=== PATIENT | male | born 1955 | race Caucasian/White ===

== ENCOUNTER 2017-05-27 09:26 | Day surgery (SDC) | payer OTHER ==
[2017-05-27] MEDS ORDERED: LIDOCAINE 1%/EPI 1:100000 (20 ML MULTI DOSE VIAL) ONE (09:56)
[2017-05-27] MEDS ORDERED: SODIUM BICARBONATE 8.4% 50 MEQ/50 ML VIAL ONE (09:57)
[2017-05-27 10:20] VITALS: BMI 43.7
[2017-05-27 11:37] VITALS: PULSE 68
[2017-05-27 11:58] VITALS: BP 148/65; TEMP 98.8
--- NOTE | 2017-06-01 18:56 | OP ---
DATE OF OPERATION: 05/27/2017 PREOPERATIVE DIAGNOSIS: Left carpal tunnel syndrome. POSTOPERATIVE DIAGNOSIS: Left carpal tunnel syndrome. OPERATIVE PROCEDURE: Left carpal tunnel release. ANESTHESIA: Local. COMPLICATIONS: None. ESTIMATED BLOOD LOSS: Minimal. INDICATION FOR PROCEDURE: The patient is a 61-year-old male with the above finding, indicated for operative treatment. Risks, benefits, and alternatives were discussed with the patient at length. Proper informed consent was obtained. PROCEDURE: After proper identification of the patient and the correct operative site, patient was brought to the operating room and placed supine on the operative table. All prominences were well padded. Local anesthesia was given with 1% lidocaine with epinephrine and bicarbonate. Left upper extremity was prepped and draped in usual sterile fashion. A longitudinal incision was made in the proximal aspect of the palm. Incision was taken sharply through the skin with blunt and sharp dissection through the subcutaneous tissues. Palmar fascia was divided longitudinally. Transcarpal ligament along with the distal 4 cm of the antebrachial fascia was divided longitudinally under direct visualization with loupe magnification. This provided complete release of the median nerve at the wrist. Wound was irrigated with copious amounts of normal saline, repaired with a 5-0 nylon suture. Sterile dressings were applied. Patient was reversed from sedation, brought to recovery room in stable condition. He tolerated the procedure well. ELMER MCARTHUR M.D. [id number]
== END 2017-05-27 12:30 | disposition home or self-care (01) ==
LOC: FASU 09:26
PROVIDERS: ATTEND Orthopaedic Surgery Hand Surgery
PROC: 01N50ZZ Release Median Nerve, Open Approach (ICD-10-PCS; principal; 2017-05-27 11:12)
DX: G56.02 Carpal tunnel syndrome, left upper limb (principal); I10 Essential (primary) hypertension; E11.9 Type 2 diabetes mellitus without complications; G47.30 Sleep apnea, unspecified; J45.909 Unspecified asthma, uncomplicated

== ENCOUNTER 2017-06-30 13:10 | Emergency (ER) | payer OTHER ==
[2017-06-30 13:21] VITALS: BMI 38.3
--- NOTE | 2017-06-30 14:11 | PDOC ---
History of Present Illness - General Chief Complaint: Blood Sugar Problem Stated Complaint: BLOOD PRESSURE Time Seen by Provider: 06/30/17 13:36 History Source: Patient Exam Limitations: No Limitations - History of Present Illness Initial Comments: This is a 61 YOM with h/o IDDM (on 60 units qAM and 40 units qPM), HTN, HLD, and recent hydrocele removal with slowly healing scrotal incision for which he follow with wound care. He presents BIBA for syncope in a parking lot shortly after taking his normal 60 units morning insulin. He had only a Glycerna this morning at did not eat his normal breakfast. EMS measured his CBG to be mid-30s on their arrival on scene. It is unclear how long the patient was unconscious as The patient himself cannot recall the incident but does recall awakening in the care of EMS. He suffered a small abrasion on the left forearm but denies head pain, neck pain, chest pain, SOB, abdominal pain, cough, runny nose, sore throat, nausea, vomiting, fever, chills, or other symptoms currently, prior to the syncopal episode, or any time recently. Past History - Past Medical History Allergies/Adverse Reactions: Allergies Allergy/AdvReac Type Severity Reaction Status Date / Time No Known Allergies Allergy Verified 06/30/17 13:17 Home Medications: Ambulatory Orders Atorvastatin Ca [Lipitor] 40 mg PO HS 12/30/11 Gabapentin [Neurontin -] 100 mg PO BID 12/30/11 Multivitamin [Multi-Day Vitamins] 1 each PO DAILY 12/30/11 Aspirin [ASA -] 81 mg PO DAILY #0 tab.chew 06/09/13 Tamsulosin HCl [Flomax -] 0.4 mg PO DAILY@0830 #0 cap.er.24h 06/09/13 Metoprolol Tartrate [Lopressor -] 50 mg PO BID #0 tablet 08/17/13 Amlodipine Besylate [Norvasc -] 10 mg PO DAILY 11/21/13 Famotidine [Pepcid -] 20 mg PO BID 02/16/15 [place]-3 Fatty Acids [Fish Oil] 2,400 mg PO DAILY 02/16/15 Bupropion HCl [Wellbutrin -] 150 mg PO DAILY 06/11/15 Fluoxetine HCl [Prozac] 80 mg PO DAILY 06/11/15 Beclomethasone Dipropionate [Qvar] 80 mcg IH BID 02/08/16 Fenofibrate Nanocrystallized [Fenofibrate] 200 mg PO DAILY 02/08/16 Glucosamine/Chondr Valdez A Sod [Osteo Bi-Flex Caplet] 2 each PO DAILY 02/08/16 Insulin Lispro Protamin/Lispro [Humalog Mix 50-50 Kwikpen] 40 unit SQ HS Insulin Lispro Protamin/Lispro [Humalog Mix 50-50 Vial] 60 unit SQ AM 02/08/16 Liraglutide [Victoza -] 1.2 mg SQ DAILY@0700 02/08/16 Allopurinol [Zyloprim -] 100 mg PO DAILY 05/19/17 Empagliflozin [Jardiance] 25 mg PO DAILY 05/19/17 Lisinopril/Hydrochlorothiazide [Lisinopril-Hctz 10-12.5 mg Tab] 1 tab PO DAILY 05/19/17 Anemia: Yes (NO MED) Asthma: No Cancer: No Cardiac Disorders: Yes (6 stent last one in 2012) CVA: No COPD: No CHF: Yes Dementia: No Diabetes: Yes GI Disorders: Yes (DIVERTICULOSIS) Disorders: No HTN: Yes Hypercholesterolemia: Yes Liver Disease: No Seizures: No Thyroid Disease: No - Surgical History Abdominal Surgery: No Appendectomy: No Cardiac Surgery: Yes (6 cardiac stents) Cholecystectomy: No Lung Surgery: No Neurologic Surgery: No Orthopedic Surgery: No - Immunization History Immunization Up to Date: Yes - Suicide/Smoking/Psychosocial Hx Smoking Status: No Smoking History: Never smoked Have you smoked in the past 12 months: No Number of Cigarettes Smoked Daily: 0 Information on smoking cessation initiated: No Hx Alcohol Use: No Drug/Substance Use Hx: No Substance Use Type: None Hx Substance Use Treatment: No Review of Systems - Review of Systems Able to Perform ROS?: Yes Constitutional: No: Chills, Fever, Unexplained wgt Loss HEENTM: No: Nose Congestion, Throat Pain Respiratory: No: Cough, Shortness of Breath Cardiac (ROS): Yes: Syncope. No: Chest Pain, Palpitations ABD/GI: No: Constipated, Diarrhea, Nausea, Vomiting : No: Burning, Dysuria Musculoskeletal: No: Back Pain, Neck Pain Integumentary: No: Bruising, Rash Neurological: No: Headache, Numbness, Tingling, Weakness, Dizziness Endocrine: No: Unexplained Weight Gain, Unexplained Weight Loss *Physical Exam - Vital Signs Last Vital Signs Temp Pulse Resp BP Pulse Ox 60 20 141/72 98 06/30/17 13:18 06/30/17 13:18 06/30/17 13:18 06/30/17 13:18 - Physical Exam General Appearance: Yes: Nourished, Appropriately Dressed, Obese, Other (very pleasant adult gentleman who is conversive and answering questions appropriately ). No: Apparent Distress HEENT: positive: EOMI, LEYLA, Normal Voice, Hearing Grossly Normal. negative: Scleral Icterus (R), Scleral Icterus (L), Nasal Congestion Neck: positive: Trachea midline, Supple. negative: Tender, Rigid Respiratory/Chest: positive: Lungs Clear, Normal Breath Sounds. negative: Respiratory Distress, Crackles, Rhonchi, Stridor, Wheezing Cardiovascular: positive: Regular Rhythm, Regular Rate. negative: Murmur Gastrointestinal/Abdominal: positive: Normal Bowel Sounds, Soft, Other (obese). negative: Tender, Organomegaly, Pulsatile Mass, Guarding Musculoskeletal: positive: Normal Inspection. negative: Decreased Range of Motion, Vertebral Tenderness Extremity: positive: Normal Capillary Refill, Normal Inspection, Normal Range of Motion. negative: Tender, Cyanosis Integumentary: positive: Normal Color, Dry, Warm. negative: Erythema, Rash, Bruising Neurologic: positive: manager inspection II-XII NML intact, Fully Oriented, Alert, Normal Mood/ Affect, Normal Response, Motor Strength 5/5 Heart Score/ECG Review - History History: Slightly suspicious - Electrocardiogram EKG: Non specific repolarization disturbance - Age Age: 45-65 - Risk Factors Risk Factors Heart Score: Yes Hx Hypercholesterolemia, Yes Hx Hypertension, Yes Hx Diabetes, Yes Hx Obesity Based on the list above the patient has:: >/=3 risk factors or Hx atherosclerotic disease ED Treatment Course - LABORATORY CBC & Chemistry Diagram: 06/30/17 14:07 06/30/17 14:07 - RADIOLOGY Radiology Studies Ordered: Category Date Time Status CHEST X-RAY PORTABLE* [RAD] Stat Radiology 06/30/17 14:01 Ordered Medical Decision Making - Medical Decision Making 61 YOM with IDDM HTN HLD who had syncopal episode s/p taking his morning 60 units humalog. Did not eat as much after dosing with insulin this morning. On exam initial rectal temp is 93.5, otherwise VS wnl. Patient initially just slightly confused (states he feels so), otherwise normal exam. DDX IBNLT sepsis, exposure, metabolic derangement, etc. Ordered is CBCD CMP Mg Cardiac panel Lactate BCx, UA Cx EKG CXR Abdifatah hugger. 06/30/17 17:03 Removed Abdifatah Hugger to see if patient can maintain body temperature. 06/30/17 18:44 Repeat oral temperature is 97.9. Repeat fingerstick glucose in the 150s. Patient feels comfortable with plan to discharge home. Return precautions are discussed. *DC/Admit/Observation/Transfer Diagnosis at time of Disposition: Hypoglycemia Syncope Qualifiers: Syncope type: unspecified Qualified Code(s): R55 - Syncope and collapse Hypothermia Qualifiers: Encounter type: initial encounter Qualified Code(s): T68.XXXA - Hypothermia, initial encounter - Discharge Dispostion Disposition: HOME Condition at time of disposition: Stable Admit: No - Referrals - Patient Instructions Printed Discharge Instructions: DI for Hyperglycemia -- Adult Additional Instructions: You were seen in the ER for high blood sugar, fainting, and low body temperature. You were given sugar solution by the paramedics and we gave you oral glucose here in the ER. We put a heated air blanket on you which helped almost immediately with your low body temperature. We did a full workup to make sure you did not have an infection or other concerning illness that could have contributed to your fainting today, and we did not find any abnormalities. Please follow up with your regular doctor in 1-3 days, or return to the ER for any new or worsening symptoms like repeated fainting, low blood glucose, or other symptoms. - Post Discharge Activity
[2017-06-30 14:45] LABS: BASO % 0.5 % (0-2.0); EOS % 0.7 % (0-4.5); HEMATOCRIT 44.9 % (35.4-49); HEMOGLOBIN 14.7 GM/dL (11.7-16.9); LYMPH % 14.3 % (8-40); MCH 29.1 pg (25.7-33.7); MCHC 32.7 g/dl (32.0-35.9); MEAN CELL VOLUME 89.2 fl (80-96); MEAN PLT VOLUME 8.6 fl (7.5-11.1); MONO % 7.2 % (3.8-10.2); NEUT % 77.3 % (42.8-82.8); PLATELET COUNT 243 K/MM3 (134-434); RBC 5.03 M/mm3 (4.00-5.60); RDW 14.6 % (11.9-15.9); WHITE BLOOD COUNT 9.1 K/mm3 (4.0-10.0)
[2017-06-30 14:58] LABS: ALBUMIN 3.7 g/dl (3.4-5.0); ALK PHOS 45 U/L (45-117); ANION GAP 7 (8-16); BILIRUBIN,TOTAL 0.5 mg/dL (0.2-1.0); BLOOD UREA NITROGEN 21 mg/dL (7-18); CALCIUM 8.8 mg/dL (8.5-10.1); CHLORIDE 104 mmol/L (98-107); CO2 26 mmol/L (21-32); CREATININE 1.3 mg/dL (0.7-1.3); SGPT/ALT 63 U/L (12-78); SODIUM 137 mmol/L (136-145); TOT PROT 7.8 g/dl (6.4-8.2)
[2017-06-30 15:02] LABS: POTASSIUM 4.2 mmol/L (3.5-5.1)
[2017-06-30 15:03] LABS: GLUCOSE,RANDOM 41 mg/dL (74-106); SGOT/AST 88 U/L (15-37)
[2017-06-30 15:05] LABS: INR 1.13 (0.82-1.09); PROTHROMBIN TIME (PATIENT) 12.8 SEC (9.98-11.88)
[2017-06-30 15:59] LABS: VENOUS PC02 56.9 mmHg (38-52); VENOUS PH 7.25 (7.32-7.42); VENOUS PO2 32.7 mmHg (28-48)
--- NOTE | 2017-06-30 16:14 | PDOC ---
Attending Attestation - Resident Resident Name: Brandy Iqbal - ED Attending Attestation I have performed the following: I have examined & evaluated the patient, The case was reviewed & discussed with the resident, I agree w/resident's findings & plan, Exceptions are as noted - HPI HPI: 06/30/17 16:08 "The patient is a 61 year old male with a significant PMH of IDDM (60 UNITS humalog in the AM and 40 UNITS in PM), hypertension, hyperlipidemia, and recent hydrocele removal who presents to the emergency department brought in by EMS after being found unresponsive in a parking lot. The patient states he took his usual 60u of inuslin in the morning and had a glycerna shake afterwards but did not eat anything else. He remembers being in the parking lot and having the sensation that his blood sugar was low. The next thing he remembers is waking up in the ambulance. As per EMS, blood glucose was found to be in the mid-30s when they found him. It is unclear how long the patient was unconscious. Pt's fingerstick in ER is 48. Pt denies any complaints currently other than feeling very cold. Denies any F/C prior to today. Denies taking more than his usual dose of insulin. The patient denies chest pain, shortness of breath, headache and dizziness. Denies fever, chills, nausea, vomit, diarrhea and constipation. Denies dysuria, frequency, urgency and hematuria. Allergies: NKA Past surgical history: None reported. Social history: No reported alcohol, cigarette or drug use. - Physicial Exam PE: 06/30/17 16:12 "GENERAL: Awake, alert, and fully oriented, in no acute distress HEAD: No signs of trauma EYES: PERRLA, EOMI, sclera anicteric, conjunctiva clear ENT: Auricles normal inspection, hearing grossly normal, nares patent, oropharynx clear without exudates. Moist mucosa NECK: Nontender, no stepoffs, Normal ROM, supple, no lymphadenopathy, JVD, or masses LUNGS: Breath sounds equal, clear to auscultation bilaterally. No wheezes, and no crackles HEART: Regular rate and rhythm, normal S1 and S2, no murmurs, rubs or gallops ABDOMEN: Soft, nontender, normoactive bowel sounds. No guarding, no rebound. No masses EXTREMITIES: Normal range of motion, no edema. No clubbing or cyanosis. No cords, erythema, or tenderness NEUROLOGICAL: Cranial nerves II through XII intact. 5/5 strength and sensation in all extremities, Normal speech, normal gait SKIN: Warm, Dry, normal turgor, no rashes or lesions noted. " - Medical Decision Making 06/30/17 16:12 61 M with hypoglycemia, likely 2/2 poor PO intake after taking his usual dose of insulin. Pt now mentating appropriately, alert and oriented x 3, after eating sandwich in ER. Pt also found to be hypothermic to 93 F in ED. This is likely 2/2 prolonged exposure outdoors. - Labs - Sepsis work up - Active external rewarming with piyush hugger - Glucose monitoring 06/30/17 18:48 Labs wnl. Fingerstick 98 after eating sandwich. Pt's temperature now improved after being on piyush hugger. Pt left off of piyush hugger for 1 hour, repeat temp normal. Pt continues to feel well with normal exam and vitals at this time. Clinically stable for DC.
--- NOTE | 2017-06-30 17:30 | EKG ---
Test Reason : Blood Pressure : / mmHG Vent. Rate : 059 BPM Atrial Rate : 059 BPM P-R Int : 158 ms QRS Dur : 116 ms QT Int : 478 ms P-R-T Axes : 007 024 -56 degrees QTc Int : 473 ms SINUS BRADYCARDIA WITH OCCASIONAL PREMATURE VENTRICULAR COMPLEXES NONSPECIFIC T WAVE ABNORMALITY PROLONGED QT ABNORMAL ECG WHEN COMPARED WITH ECG OF 04-APR-2016 11:57, PREMATURE VENTRICULAR COMPLEXES ARE NOW PRESENT VENT. RATE HAS DECREASED BY 30 BPM T WAVE INVERSION NO LONGER EVIDENT IN INFERIOR LEADS Confirmed by Oumar Freeman ([id number]) on 06/30/2017 5:30:19 PM Referred By: Confirmed By:Oumar Freeman
[2017-06-30 18:58] VITALS: BP 126/77; PULSE 81; TEMP 98.1
== END 2017-06-30 18:58 | disposition home or self-care (01) ==
LOC: JER 13:10
DX: E11.649 Type 2 diabetes mellitus with hypoglycemia without coma (principal); Z79.4 Long term (current) use of insulin; I25.10 Atherosclerotic heart disease of native coronary artery without angina pectoris; I11.0 Hypertensive heart disease with heart failure; Z95.5 Presence of coronary angioplasty implant and graft; E78.00 Pure hypercholesterolemia, unspecified
CPT/HCPCS: 36415; 71045-TC; 80053; 82550; 82553; 82803; 82962; 83605; 84484; 85025; 85610; 85730; 86850; 86900; 86901; 87040; 93005; 93010; 99285-25

== ENCOUNTER 2017-07-08 10:19 | Day surgery (SDC) | payer OTHER ==
[2017-07-02 10:06] VITALS: BMI 37.6
[2017-07-08] MEDS ORDERED: LIDOCAINE HCL 2% (20ML MULTI-DOSE VIAL) NR ONE (13:17)
[2017-07-08] MEDS ORDERED: BUPIVACAINE HCL/PF 2.5 MG/ML - 30 ML VIAL IJ ONE (13:17)
[2017-07-08] MEDS ORDERED: LIDOCAINE 1%/EPI 1:100000 (20 ML MULTI DOSE VIAL) ONE (13:45)
[2017-07-08] MEDS ORDERED: SODIUM BICARBONATE 8.4% 50 MEQ/50 ML VIAL ONE (13:45)
[2017-07-08 14:54] VITALS: TEMP 98.8
[2017-07-08 15:29] VITALS: BP 130/66; PULSE 70
--- NOTE | 2017-07-11 12:10 | OP ---
DATE OF OPERATION: 07/08/2017 PREOPERATIVE DIAGNOSIS: Right carpal tunnel syndrome. POSTOPERATIVE DIAGNOSIS: Right carpal tunnel syndrome. OPERATIVE PROCEDURE: Right carpal tunnel release. ANESTHESIA: Local. COMPLICATIONS: None. ESTIMATED BLOOD LOSS: Minimal. INDICATION FOR PROCEDURE: The patient is a 61-year-old male with the above finding, indicated for operative treatment. Risks, benefits, and alternatives were discussed with the patient at length. Proper informed consent was obtained. PROCEDURE: After proper identification of the patient and the correct operative site, the patient was brought to the operating room and placed supine on the operative table. Prominences were well padded. Local anesthesia was given with 2% lidocaine with epinephrine. Right upper extremity was prepped and draped in the usual sterile fashion. A longitudinal incision was made in the proximal aspect of the palm. Incision was taken sharply through the skin with blunt and sharp dissection through the subcutaneous tissues. Palmar fascia was divided longitudinally. Transcarpal ligament was divided longitudinally along with the distal 4 cm of the antebrachial fascia under direct visualization with loupe magnification. This provided complete release of the median nerve at the wrist. Wound was irrigated with saline and repaired with a 5-0 nylon suture. Sterile dressings were applied. Patient was brought to Recovery in stable condition. He tolerated the procedure well. ELMER MCARTHUR M.D. [id number]
== END 2017-07-08 15:34 | disposition home or self-care (01) ==
LOC: FASU 10:19
PROVIDERS: ATTEND Orthopaedic Surgery Hand Surgery
PROC: 01N50ZZ Release Median Nerve, Open Approach (ICD-10-PCS; principal; 2017-07-08 14:16)
DX: G56.01 Carpal tunnel syndrome, right upper limb (principal)
CPT/HCPCS: 82962; 87070

== ENCOUNTER 2018-03-10 07:24 | Day surgery (SDC) | payer OTHER ==
[2018-03-01 17:54] VITALS: BMI 38.0
[2018-03-10] MEDS ORDERED: PROPOFOL 20 ML ONE ×2 (07:27)
[2018-03-10 09:52] VITALS: BP 128/70; PULSE 57; TEMP 98
--- NOTE | 2018-03-12 15:06 | PATH ---
Surgical Pathology Report Patient Name: ESTEFANÍA GUZMÁN [facility]. Rec. #: [id number] /Age/Gender: 1955 (Age: 62) / M Account: [id number] Location: [facility] Taken: 03/10/2018 Received: 03/10/2018 Reported: 03/12/2018 Physicians: eVlasquez Fisher M.D. Specimen(s) Received A: BX CECUM B: SPLENIC FLEXURE BIOPSY Clinical History Rule out colon cancer, history of polyps Postoperative diagnosis: Polyps Final Diagnosis A. CECUM, BIOPSY: TUBULAR ADENOMA. B. COLON, SPLENIC FLEXURE, BIOPSY: ORGANIC MATERIAL/DEBRIS. NO COLONIC MUCOSA IDENTIFIED. Electronically Signed Davina Ruiz M.D. Gross Description A. Received in formalin, labeled "cecum" is a krishnamurthy, irregular portion of soft tissue measuring 0.3 cm. in greatest dimension. The specimen is submitted in toto in one cassette. B. Received in formalin labeled "splenic," is a 0.4 x 0.4 x 0.1 cm aggregate of organic debris. No definite soft tissue is identified. The formalin is filtered and the specimen is entirely submitted in one cassette. 03/11/2018 saudi03/11/2018
== END 2018-03-10 09:52 | disposition home or self-care (01) ==
LOC: FASU-ENDO 07:24
PROVIDERS: ATTEND Internal Medicine Gastroenterology
PROC: 0DBN8ZX Excision of Sigmoid Colon, Via Natural or Artificial Opening Endoscopic, Diagnostic (ICD-10-PCS; 2018-03-10)
PROC: 0DBH8ZX Excision of Cecum, Via Natural or Artificial Opening Endoscopic, Diagnostic (ICD-10-PCS; principal; 2018-03-10 08:32)
PROC: 0DBL8ZX Excision of Transverse Colon, Via Natural or Artificial Opening Endoscopic, Diagnostic (ICD-10-PCS; 2018-03-10 08:32)
DX: Z86.010 Personal history of colon polyps (principal); D12.0 Benign neoplasm of cecum; K57.30 Diverticulosis of large intestine without perforation or abscess without bleeding
CPT/HCPCS: 82962; 88305-TC

== ENCOUNTER 2019-07-19 09:04 | Emergency (ER) | payer OTHER ==
[2019-07-19 09:18] VITALS: BP 155/65; PULSE 72; TEMP 99.1; BMI 40.4
--- NOTE | 2019-07-19 09:35 | PDOC ---
History of Present Illness - General Chief Complaint: Injury Stated Complaint: ROLLED OUT OF BED INJURED LEFTARM AND FINGER Time Seen by Provider: 07/19/19 09:24 - History of Present Illness Initial Comments: 07/19/19 09:40 62 years old with past medical history of hypertension hyperlipidemia CAD stents diastolic heart failure insulin-dependent diabetes bilateral lower extremity cellulitis on aspirin presents to the emergency department with fall from bed Patient states he rolled out of bed hit his upper lip below his nose on the bed stand fell to the ground landing on his left hand complaining of mild pain to his left index finger middle finger and right forearm Denies loss of consciousness states this is happened to him before he does take melatonin and Benadryl at night to help him sleep and because of this he is often drowsy. Denies any chest pain shortness of breath nausea vomiting or diarrhea Past History - Past Medical History Allergies/Adverse Reactions: Allergies Allergy/AdvReac Type Severity Reaction Status Date / Time No Known Allergies Allergy Verified 07/19/19 09:19 Home Medications: Ambulatory Orders Allopurinol [Zyloprim -] 200 mg PO DAILY 07/19/19 Amlodipine Besylate [Norvasc -] 10 mg PO DAILY 07/19/19 Aspirin 81 mg PO DAILY 07/19/19 Atorvastatin Ca [Lipitor] 40 mg PO HS 07/19/19 Bupropion HCl [Wellbutrin -] 300 mg PO DAILY 07/19/19 Cholecalciferol (Vitamin D3) [Vitamin D3 -] 4,000 unit PO DAILY 07/19/19 Diphenhydramine HCl [Benadryl -] 25 mg PO ONCE 07/19/19 Empagliflozin [Jardiance] 25 mg PO DAILY 07/19/19 Famotidine [Pepcid] 20 mg PO BID 07/19/19 Fenofibrate 200 mg PO DAILY 07/19/19 Fluoxetine HCl [Prozac] 80 mg PO DAILY 07/19/19 Gabapentin 100 mg PO BID 07/19/19 Glucosamine/Chondr Valdez A Sod [Osteo Bi-Flex Caplet] 1 each PO DAILY 07/19/19 Insulin Lispro Protamin/Lispro [Humalog Mix 50-50 Vial] 07/19/19 Losartan Potassium 25 mg PO DAILY 07/19/19 Melatonin 10 mg PO HS 07/19/19 Metoprolol Tartrate 50 mg PO BID 07/19/19 Multivit,Calc,Mins/Iron/Folic [Therapeutic-M Tablet] 1 each PO DAILY 07/19/19 [place]-3S/Dha/Epa/Fish Oil [Fish Oil 1,200 mg Softgel] 1 cap PO DAILY 07/19/19 Tamsulosin HCl [Flomax] 0.4 mg PO BID 07/19/19 Anemia: No Asthma: No Cancer: No Cardiac Disorders: No CVA: No COPD: No CHF: Yes Dementia: No Diabetes: Yes GI Disorders: Yes (diarrhea,) Disorders: Yes (incontinence) HTN: Yes Hypercholesterolemia: Yes Liver Disease: No Seizures: No Thyroid Disease: No - Surgical History Abdominal Surgery: No Appendectomy: No Cardiac Surgery: Yes (stents x6) Cholecystectomy: No Lung Surgery: No Neurologic Surgery: No Orthopedic Surgery: Yes (L/R Carpal Tunnel Release) - Immunization History Immunization Up to Date: Yes - Psycho Social/Smoking Cessation Hx Smoking Status: No Smoking History: Never smoked Have you smoked in the past 12 months: No Number of Cigarettes Smoked Daily: 0 Information on smoking cessation initiated: No Hx Alcohol Use: No Drug/Substance Use Hx: No Substance Use Type: None Hx Substance Use Treatment: No Review of Systems - Review of Systems Comments:: 07/19/19 09:41 ROS: A complete review of 10 out of 10 review of systems is taken and is negative apart from what is previously mentioned below and in the HPI. *Physical Exam - Vital Signs Last Vital Signs Temp Pulse Resp BP Pulse Ox 99.1 F 72 16 155/65 100 07/19/19 09:08 07/19/19 09:08 07/19/19 09:08 07/19/19 09:08 07/19/19 09:08 - Physical Exam 07/19/19 09:41 Vitals: Triage Vital signs reviewed General Appearance: No acute distress, well nourished well developed, Head: Atraumatic, Cardiac: Regular rate and rhythym, no murmurs, no rubs, no gallops, Lungs: Clear to auscultation bilateral, good air movement bilaterally, Abdomen: Soft, non distended, normal bowel sounds, non tender to palpation Extremities: Full range of motion to all extremities, tenderness to palpation and decreased range of motion to left middle finger maximally tender above the DIP mild tenderness to palpation midshaft ulnar side full range of motion at the wrist Skin: Warm and dry, 1 cm to 2 cm stellate laceration right below bridge of nose Neuro: AOX3; cranial Nerves 2-12 grossly intact, strength intact to all extremities, sensation intact to all extremities, gait normal Psych: Normal mood, normal affect Procedures - Laceration/Wound Repair Face Wound Length: to 2.5 cm Wound Explored: clean Wound's Depth, Shape: superficial Irrigated w/ Saline: Yes Betadine Prep: Yes Suture Size/Type: 6:0 Number of Sutures: 3 Medical Decision Making - Medical Decision Making 07/19/19 10:58 Mechanical fall out of bed laceration sustained approximated see procedure note Head CT with no fracture hand forearm wrist with no fracture however patient tender over the first digit splint placed will remove in 3 to 4 days will follow -up with hand if no improvement patient return to ED in 5 to 7 days for suture removal Findings, the need for follow-up and strict return instructions discussed with patient. Discharge - Discharge Information Problems reviewed: Yes Clinical Impression/Diagnosis: Laceration Minor head injury Qualifiers: Encounter type: initial encounter Qualified Code(s): S09.90XA - Unspecified injury of head, initial encounter Finger injury Qualifiers: Encounter type: initial encounter Laterality: left Qualified Code(s): S69.92XA - Unspecified injury of left wrist, hand and finger(s), initial encounter Condition: Stable - Admission No - Follow up/Referral Referrals: Nicolas Grove MD [Primary Care Provider] - Tanmay Fang MD [Staff Physician] - - Patient Discharge Instructions Patient Printed Discharge Instructions: DI for Closed Head Injury, DI for Laceration Repair Additional Instructions: Bacitracin twice a day to laceration return to ED in 5 to 7 days for suture removal or immediately for any signs of infection. Return to ED immediately for any severe headache nausea vomiting weakness numbness or for any concerns. Ice finger 20 minutes on 20 minutes off. If still having pain for greater than 3 to 4 days follow-up with Orthopedics Return to ED for any concerns. - Post Discharge Activity
== END 2019-07-19 11:09 | disposition home or self-care (01) ==
LOC: FER 09:04
DX: S69.92XA Unspecified injury of left wrist, hand and finger(s), initial encounter (principal); S09.90XA Unspecified injury of head, initial encounter; I10 Essential (primary) hypertension; E78.5 Hyperlipidemia, unspecified; I25.10 Atherosclerotic heart disease of native coronary artery without angina pectoris; E11.9 Type 2 diabetes mellitus without complications; R19.7 Diarrhea, unspecified; I50.9 Heart failure, unspecified; E78.00 Pure hypercholesterolemia, unspecified; Z95.5 Presence of coronary angioplasty implant and graft; W06.XXXA Fall from bed, initial encounter; Y93.89 Activity, other specified; Y92.89 Other specified places as the place of occurrence of the external cause
CPT/HCPCS: 70450-TC; 73090-TC-LT-FY; 73110-TC-LT-FY; 73130-TC-LT-FY; 99284-25

== ENCOUNTER 2020-09-27 12:02 | Emergency (ER) | payer OTHER ==
[2020-09-27 12:09] VITALS: BP 133/67; PULSE 75; TEMP 98; BMI 33.6
== END 2020-09-27 13:06 | disposition home or self-care (01) ==
LOC: FER 12:02
DX: L03.113 Cellulitis of right upper limb (principal)
CPT/HCPCS: 99283-25

== ENCOUNTER 2022-06-04 07:39 | Day surgery (SDC) | payer OTHER ==
[2022-05-30 09:49] VITALS: BMI 28.7
[2022-06-04 09:17] VITALS: RESP 20; TEMP 98
[2022-06-04 09:19] VITALS: PULSE 82
[2022-06-04 09:39] VITALS: BP 139/66
== END 2022-06-04 09:55 | disposition home or self-care (01) ==
LOC: FASU-ENDO 07:39
PROVIDERS: ATTEND Internal Medicine Gastroenterology
PROC: 0DJD8ZZ Inspection of Lower Intestinal Tract, Via Natural or Artificial Opening Endoscopic (ICD-10-PCS; principal; 2022-06-04 08:40)
DX: Z12.11 Encounter for screening for malignant neoplasm of colon (principal); K57.30 Diverticulosis of large intestine without perforation or abscess without bleeding; Z86.010 Personal history of colon polyps
CPT/HCPCS: 82962

== ENCOUNTER 2023-06-25 10:54 | Inpatient (IN) | payer OTHER ==
[2023-06-25 11:07] VITALS: BMI 31.5
[2023-06-25] MEDS ORDERED: VANCOMYCIN 1,000 MG VIAL (RESTRICTED TO ID ONLY) ONE (12:17)
[2023-06-25] MEDS ORDERED: PIPERACILLIN/TAZOBACTAM 4.5 GM VIAL IVPB ONE (12:17)
[2023-06-25] MEDS: PIPERACILLIN/TAZOB 4.5 GM 4.5 GM in DEXTROSE 5%-WATER 100 ML IVPB ONE (12:50)
[2023-06-25 13:18] LABS: HEMATOCRIT 33.4 % (35.4-49); HEMOGLOBIN 11.1 G/dL (11.7-16.9); MCH 30.8 pg (25.7-33.7); MCHC 33.1 g/dl (32.0-35.9); MEAN PLT VOLUME 8.1 fl (7.5-11.1); PLATELET COUNT 130.7 10^3/uL (134-434); RBC 3.59 10^6/uL (4.00-5.60); RDW 13.8 % (11.9-15.9); WHITE BLOOD COUNT 7.1 10^3/uL (4.0-10.8)
[2023-06-25] MEDS: VANCOMYCIN 1,000 MG in DEXTROSE 5%-WATER - 250 ML IVPB ONE (13:19)
[2023-06-25 13:30] LABS: PLATELET ESTIMATE DECREASED
[2023-06-25 13:42] LABS: ERYTHROCYTE SEDIMENTATION RATE 96 mm/hr (0-20)
[2023-06-25 13:57] LABS: ALBUMIN 3.3 g/dl (3.4-5.0); BILIRUBIN,TOTAL 0.7 mg/dl (0.2-1); CALCIUM 8.6 mg/dl (8.5-10.1); CREATININE 0.8 mg/dl (0.6-1.3); POTASSIUM 4.1 mmol/L (3.5-5.1); TOT PROT 5.6 g/dl (6.4-8.2)
[2023-06-25] MEDS ORDERED: oxyCODONE HCL 5 MG TABLET PO PRN (16:39)
[2023-06-25] MEDS ORDERED: ACETAMINOPHEN 325 MG TABLET (FP) PO PRN (16:39)
[2023-06-25 17:27] VITALS: RESP 18
[2023-06-25] MEDS: PIPERACILLIN/TAZOB 3.375 GM 3.375 GM in DEXTROSE 5%-WATER - 50 ML IVPB SCH (18:00)
[2023-06-25] MEDS ORDERED: INSULIN ASPART SLIDING SCALE (NOVOLOG) 1 VIAL SQ ONE (21:53)
[2023-06-25] MEDS: ENOXAPARIN NA (PORCINE) 100 MG/1 ML DISP.SYRIN SQ SCH (22:04)
[2023-06-25] MEDS: INSULIN ASPART SLIDING SCALE (NOVOLOG) 1 VIAL SQ SCH (22:04)
[2023-06-26] MEDS: diphenhydrAMINE HCL 25 MG CAPSULE (FP) PO SCH (02:00)
[2023-06-26] MEDS: CARBIDOPA/LEVODOPA 25/100 TABLET (FP) PO SCH (02:00)
[2023-06-26] MEDS: FAMOTIDINE 20 MG TABLET PO SCH (02:00)
[2023-06-26 08:25] LABS: HEMATOCRIT 30.9 % (35.4-49); HEMOGLOBIN 10.5 G/dL (11.7-16.9); MCH 31.7 pg (25.7-33.7); MEAN CELL VOLUME 93.5 fl (80-96); MEAN PLT VOLUME 8.3 fl (7.5-11.1); RBC 3.31 10^6/uL (4.00-5.60); RDW 13.7 % (11.9-15.9); WHITE BLOOD COUNT 5.8 10^3/uL (4.0-10.8)
[2023-06-26] MEDS: BUDESONIDE/FORMETEROL FUMARATE 160/4.5 mcg INHALER IH SCH (09:26)
[2023-06-26] MEDS: APIXABAN 5 MG TABLET PO SCH (09:27)
[2023-06-26] MEDS: ALLOPURINOL 100 MG TABLET (FP) PO SCH (09:27)
[2023-06-26] MEDS: TAMSULOSIN HCL 0.4 MG CAP PO SCH (09:27)
[2023-06-26] MEDS: LOSARTAN POTASSIUM 50 MG TABLET PO SCH (09:27)
[2023-06-26] MEDS: ASPIRIN 81 MG CHEWABLE TABLETS PO SCH (09:27)
[2023-06-26] MEDS: FLUoxetine HCL 20 MG CAPSULE PO SCH (09:27)
[2023-06-26 09:37] LABS: CALCIUM 8.5 mg/dl (8.5-10.1); CREATININE 0.9 mg/dl (0.6-1.3); POTASSIUM 4.1 mmol/L (3.5-5.1)
[2023-06-26] MEDS ORDERED: PATIENT'S OWN MEDICATION (NON-FORMULARY) (Mirabegron [Myrbetriq] 25 MG Tab.Er.24h) PO SCH (10:00)
[2023-06-26] MEDS: ATORVASTATIN CA 40 MG TABLET (FP) PO SCH (22:16)
[2023-06-27] MEDS: PIPERACILLIN/TAZOB 3.375 GM 3.375 GM in DEXTROSE 5%-WATER - 50 ML IVPB SCH (02:05)
[2023-06-27 09:15] LABS: BASO % 0.3 % (0-2.0); EOS % 2.3 % (0-4.5); HEMATOCRIT 30.1 % (35.4-49); HEMOGLOBIN 10.4 GM/dL (11.7-16.9); LYMPH % 17.3 % (8-40); MCH 31.9 pg (25.7-33.7); MCHC 34.6 g/dl (32.0-35.9); MEAN CELL VOLUME 92.3 fl (80-96); MEAN PLT VOLUME 7.7 fl (7.5-11.1); MONO % 12.8 % (3.8-10.2); NEUT % 67.3 % (42.8-82.8); PLATELET COUNT 163 10^3/uL (134-434); RBC 3.26 M/mm3 (4.00-5.60); RDW 12.9 % (11.9-15.9); WHITE BLOOD COUNT 4.5 K/mm3 (4.0-10.0)
[2023-06-27] MEDS: VANCOMYCIN/WATER FOR INJ (PEG) 1,000 MG/200 ML BAG IVPB SCH ×2 (10:03→22:09)
[2023-06-27 10:05] LABS: POTASSIUM 4.3 mmol/L (3.5-5.1)
[2023-06-27 10:10] LABS: CALCIUM 8.8 mg/dL (8.5-10.1)
[2023-06-27 10:11] LABS: ALBUMIN 2.4 g/dl (3.4-5.0); BLOOD UREA NITROGEN 20.5 mg/dL (7-18)
[2023-06-27 10:16] LABS: BILIRUBIN,TOTAL 0.5 mg/dL (0.2-1); TOT PROT 5.8 g/dl (6.4-8.2)
[2023-06-28] MEDS ORDERED: PIPERACILLIN/TAZOBACTAM 3.375 GM VIAL IVPB ONE (01:41)
[2023-06-28 09:46] LABS: BASO % 0.7 % (0-2.0); EOS % 2.6 % (0-4.5); HEMOGLOBIN 11.3 GM/dL (11.7-16.9); LYMPH % 15.7 % (8-40); MCH 31.4 pg (25.7-33.7); MCHC 34.2 g/dl (32.0-35.9); MEAN CELL VOLUME 91.7 fl (80-96); MEAN PLT VOLUME 7.6 fl (7.5-11.1); MONO % 11.3 % (3.8-10.2); NEUT % 69.7 % (42.8-82.8); PLATELET COUNT 186 10^3/uL (134-434); WHITE BLOOD COUNT 4.9 K/mm3 (4.0-10.0)
[2023-06-28 09:54] LABS: POTASSIUM 4.1 mmol/L (3.5-5.1)
[2023-06-28 10:21] LABS: CALCIUM 8.8 mg/dL (8.5-10.1)
[2023-06-28 10:23] LABS: ALBUMIN 2.7 g/dl (3.4-5.0); BLOOD UREA NITROGEN 20.7 mg/dL (7-18)
[2023-06-28 10:27] LABS: BILIRUBIN,TOTAL 0.4 mg/dL (0.2-1); TOT PROT 6.1 g/dl (6.4-8.2)
[2023-06-28] MEDS ORDERED: INSULIN ASPART SLIDING SCALE (NOVOLOG) 1 VIAL SQ ONE (11:43)
[2023-06-28] MEDS: DOCUSATE SODIUM 100 MG CAPSULE (FP) PO SCH (15:23)
[2023-06-29] MEDS: LOSARTAN POTASSIUM 25 MG TABLET PO ONE (10:10)
[2023-06-29 11:12] LABS: HEMATOCRIT 32.4 % (35.4-49); HEMOGLOBIN 11.2 GM/dL (11.7-16.9); MCH 31.6 pg (25.7-33.7); MCHC 34.5 g/dl (32.0-35.9); MEAN CELL VOLUME 91.4 fl (80-96); MEAN PLT VOLUME 7.2 fl (7.5-11.1); PLATELET COUNT 184 10^3/uL (134-434); RBC 3.55 M/mm3 (4.00-5.60); RDW 12.8 % (11.9-15.9); WHITE BLOOD COUNT 4.1 K/mm3 (4.0-10.0)
[2023-06-29 11:54] LABS: POTASSIUM 4.2 mmol/L (3.5-5.1)
[2023-06-29 12:00] LABS: ALBUMIN 2.7 g/dl (3.4-5.0); BLOOD UREA NITROGEN 23.4 mg/dL (7-18); CALCIUM 8.4 mg/dL (8.5-10.1)
[2023-06-29 12:02] LABS: PHOSPHOROUS 3.4 mg/dL (2.5-4.9)
[2023-06-29 12:05] LABS: BILIRUBIN,TOTAL 0.3 mg/dL (0.2-1)
[2023-06-30 09:39] LABS: BASO % 0.5 % (0-2.0); EOS % 2.3 % (0-4.5); HEMATOCRIT 32.7 % (35.4-49); HEMOGLOBIN 11.7 GM/dL (11.7-16.9); LYMPH % 19.4 % (8-40); MCH 32.4 pg (25.7-33.7); MCHC 35.7 g/dl (32.0-35.9); MEAN CELL VOLUME 90.8 fl (80-96); MEAN PLT VOLUME 7.1 fl (7.5-11.1); MONO % 8.8 % (3.8-10.2); PLATELET COUNT 188 10^3/uL (134-434); WHITE BLOOD COUNT 5.3 K/mm3 (4.0-10.0)
[2023-06-30 10:02] LABS: POTASSIUM 4.3 mmol/L (3.5-5.1)
[2023-06-30] MEDS: amLODIPine BESYLATE 5 MG TABLET (FP) PO SCH (10:06)
[2023-06-30 10:10] LABS: ALBUMIN 2.8 g/dl (3.4-5.0); BLOOD UREA NITROGEN 23.5 mg/dL (7-18); CALCIUM 8.8 mg/dL (8.5-10.1)
[2023-06-30 10:12] LABS: BILIRUBIN,TOTAL 0.3 mg/dL (0.2-1); TOT PROT 6.4 g/dl (6.4-8.2)
[2023-06-30] MEDS: HYDROCORTISONE 0.5% TOPICAL CREAM 30 GM TUBE TP PRN (21:25)
[2023-07-01] MEDS ORDERED: BUPIVACAINE HCL/PF 0.5% (5MG/ML) 10 ML VIAL ONE (07:15)
[2023-07-01] MEDS ORDERED: LIDOCAINE HCL 1%, 10 MG/ML (20ML VIAL) ONE (07:15)
[2023-07-01] MEDS ORDERED: DEXAMETHASONE SOD PHOSPHATE 10 MG/1 ML VIAL ONE (07:16)
[2023-07-01] MEDS ORDERED: VANCOMYCIN 1,000 MG VIAL (RESTRICTED TO ID ONLY) ONE ×2 (07:17→07:51)
[2023-07-01] MEDS ORDERED: LIDOCAINE HCL/PF 2% SDV 5ML VIAL ONE (07:18)
[2023-07-01] MEDS ORDERED: MIDAZOLAM HCL 2 MG/2 ML SINGLE DOSE VIAL ONE (07:18)
[2023-07-01] MEDS ORDERED: PROPOFOL 60 ML ONE (07:18)
[2023-07-01] MEDS: LIDOCAINE HCL 1%, 10 MG/ML (50 mL VIAL) INF ONE (07:41)
[2023-07-01] MEDS ORDERED: PROMETHAZINE HCL 25 MG/1 ML VIAL IVPB PRN ×2 (08:00→08:26)
[2023-07-01] MEDS ORDERED: ONDANSETRON 4 MG/2 ML VIAL IVPUSH PRN ×2 (08:00→08:26)
[2023-07-01] MEDS ORDERED: HYDROCORTISONE 0.5% TOPICAL CREAM 30 GM TUBE TP PRN (08:26)
[2023-07-01] MEDS ORDERED: KETOROLAC TROMETHAMINE 30 MG/1 ML VIAL ONE (08:52)
[2023-07-01] MEDS: KETOROLAC TROMETHAMINE 30 MG/1 ML VIAL IVPUSH ONE ×2 (08:52→11:05)
[2023-07-01] MEDS: TAMSULOSIN HCL 0.4 MG CAP PO SCH (09:00)
[2023-07-01 09:59] LABS: BASO % 0.5 % (0-2.0); EOS % 2.1 % (0-4.5); HEMOGLOBIN 10.9 GM/dL (11.7-16.9); LYMPH % 19.5 % (8-40); MCH 31.2 pg (25.7-33.7); MCHC 34.2 g/dl (32.0-35.9); MEAN CELL VOLUME 91.3 fl (80-96); MONO % 8.5 % (3.8-10.2); NEUT % 69.4 % (42.8-82.8); PLATELET COUNT 185 10^3/uL (134-434); RBC 3.51 M/mm3 (4.00-5.60); RDW 12.8 % (11.9-15.9)
[2023-07-01] MEDS ORDERED: PATIENT'S OWN MEDICATION (NON-FORMULARY) (Mirabegron [Myrbetriq] 25 MG) PO SCH (10:00)
[2023-07-01] MEDS ORDERED: PIPERACILLIN/TAZOB 3.375 GM 3.375 GM in DEXTROSE 5%-WATER - 50 ML IVPB SCH (10:00)
[2023-07-01 10:17] LABS: POTASSIUM 4.4 mmol/L (3.5-5.1)
[2023-07-01 10:22] LABS: ALBUMIN 2.8 g/dl (3.4-5.0); BLOOD UREA NITROGEN 24.9 mg/dL (7-18); CALCIUM 8.6 mg/dL (8.5-10.1)
[2023-07-01 10:26] LABS: BILIRUBIN,TOTAL 0.3 mg/dL (0.2-1)
[2023-07-01 10:28] LABS: TOT PROT 5.9 g/dl (6.4-8.2)
[2023-07-01] MEDS: APIXABAN 5 MG TABLET PO SCH (10:33)
[2023-07-01] MEDS: FLUoxetine HCL 20 MG CAPSULE PO SCH (10:33)
[2023-07-01] MEDS: LOSARTAN POTASSIUM 50 MG TABLET PO SCH (10:34)
[2023-07-01] MEDS: ASPIRIN 81 MG CHEWABLE TABLETS PO SCH (10:34)
[2023-07-01] MEDS: FAMOTIDINE 20 MG TABLET PO SCH (10:34)
[2023-07-01] MEDS: ALLOPURINOL 100 MG TABLET (FP) PO SCH (10:34)
[2023-07-01] MEDS: amLODIPine BESYLATE 5 MG TABLET (FP) PO SCH (10:34)
[2023-07-01] MEDS: VANCOMYCIN/WATER FOR INJ (PEG) 1,000 MG/200 ML BAG IVPB SCH (10:35)
[2023-07-01] MEDS: INSULIN ASPART SLIDING SCALE (NOVOLOG) 1 VIAL SQ SCH (11:37)
[2023-07-01] MEDS: BUDESONIDE/FORMETEROL FUMARATE 160/4.5 mcg INHALER IH SCH (11:43)
[2023-07-01] MEDS: DOCUSATE SODIUM 100 MG CAPSULE (FP) PO SCH (13:09)
[2023-07-01] MEDS: CARBIDOPA/LEVODOPA 25/100 TABLET (FP) PO SCH (13:09)
[2023-07-01] MEDS: LACTATED RINGERS SOLUTION 1,000 ML IV SCH ×2 (17:53)
[2023-07-01] MEDS ORDERED: INSULIN (LEVEMIR) 100 UNITS/ML UNITS SQ SCH (22:00)
[2023-07-01] MEDS: ATORVASTATIN CA 40 MG TABLET (FP) PO SCH (22:10)
[2023-07-01] MEDS: diphenhydrAMINE HCL 25 MG CAPSULE (FP) PO SCH (22:10)
[2023-07-01] MEDS: INSULIN (LEVEMIR) 100 UNITS/ML UNITS SQ SCH (22:12)
[2023-07-02 10:07] LABS: BASO % 0.5 % (0-2.0); EOS % 2.2 % (0-4.5); HEMATOCRIT 32.1 % (35.4-49); HEMOGLOBIN 11.1 GM/dL (11.7-16.9); LYMPH % 15.4 % (8-40); MCH 31.5 pg (25.7-33.7); MCHC 34.6 g/dl (32.0-35.9); MEAN CELL VOLUME 91.1 fl (80-96); MEAN PLT VOLUME 7.2 fl (7.5-11.1); MONO % 7.9 % (3.8-10.2); PLATELET COUNT 196 10^3/uL (134-434); RBC 3.53 M/mm3 (4.00-5.60); RDW 12.8 % (11.9-15.9); WHITE BLOOD COUNT 5.9 K/mm3 (4.0-10.0)
[2023-07-02 10:22] LABS: POTASSIUM 4.4 mmol/L (3.5-5.1)
[2023-07-02 10:29] LABS: ALBUMIN 2.8 g/dl (3.4-5.0); CALCIUM 8.6 mg/dL (8.5-10.1)
[2023-07-02 10:30] LABS: BLOOD UREA NITROGEN 27.3 mg/dL (7-18)
[2023-07-02] MEDS: ACETAMINOPHEN 325 MG TABLET (FP) PO PRN (10:31)
[2023-07-02 10:34] LABS: BILIRUBIN,TOTAL 0.4 mg/dL (0.2-1); TOT PROT 5.9 g/dl (6.4-8.2)
[2023-07-03 11:29] LABS: HEMATOCRIT 33.8 % (35.4-49); HEMOGLOBIN 11.6 GM/dL (11.7-16.9); MCHC 34.3 g/dl (32.0-35.9); MEAN CELL VOLUME 90.6 fl (80-96); MEAN PLT VOLUME 7.3 fl (7.5-11.1); PLATELET COUNT 197 10^3/uL (134-434); RBC 3.74 M/mm3 (4.00-5.60); RDW 12.9 % (11.9-15.9); WHITE BLOOD COUNT 6.7 K/mm3 (4.0-10.0)
[2023-07-03 11:47] LABS: POTASSIUM 4.3 mmol/L (3.5-5.1)
[2023-07-03 11:51] LABS: CALCIUM 8.8 mg/dL (8.5-10.1)
[2023-07-03 11:52] LABS: ALBUMIN 2.8 g/dl (3.4-5.0); BLOOD UREA NITROGEN 27.7 mg/dL (7-18)
[2023-07-03 11:56] LABS: TOT PROT 6.3 g/dl (6.4-8.2)
[2023-07-03 11:57] LABS: BILIRUBIN,TOTAL 0.3 mg/dL (0.2-1)
[2023-07-03] MEDS ORDERED: DAPTOMYCIN 750 MG in SODIUM CHLORIDE 100 ML IVPB SCH (12:30)
[2023-07-03] MEDS: DAPTOMYCIN 750 MG in SODIUM CHLORIDE 100 ML IVPB SCH (16:14)
[2023-07-04 10:19] LABS: BASO % 0.4 % (0-2.0); EOS % 2.3 % (0-4.5); HEMATOCRIT 32.5 % (35.4-49); HEMOGLOBIN 11.4 GM/dL (11.7-16.9); LYMPH % 15.5 % (8-40); MCH 31.6 pg (25.7-33.7); MCHC 34.9 g/dl (32.0-35.9); MEAN CELL VOLUME 90.5 fl (80-96); MEAN PLT VOLUME 7.3 fl (7.5-11.1); MONO % 7.8 % (3.8-10.2); PLATELET COUNT 199 10^3/uL (134-434); RDW 13.1 % (11.9-15.9); WHITE BLOOD COUNT 6.6 K/mm3 (4.0-10.0)
[2023-07-04] MEDS: BUPROPION HCL 300 MG, BUPROPION HCL 150 MG PO SCH (10:34)
[2023-07-04 10:38] LABS: POTASSIUM 4.2 mmol/L (3.5-5.1)
[2023-07-04 10:43] LABS: CALCIUM 8.5 mg/dL (8.5-10.1)
[2023-07-04 10:44] LABS: BLOOD UREA NITROGEN 24.3 mg/dL (7-18)
[2023-07-04 10:48] LABS: BILIRUBIN,TOTAL 0.3 mg/dL (0.2-1); TOT PROT 6.2 g/dl (6.4-8.2)
[2023-07-05 09:10] LABS: BASO % 0.5 % (0-2.0); EOS % 1.9 % (0-4.5); HEMATOCRIT 34.8 % (35.4-49); HEMOGLOBIN 11.6 GM/dL (11.7-16.9); LYMPH % 15.9 % (8-40); MCH 30.7 pg (25.7-33.7); MCHC 33.4 g/dl (32.0-35.9); MEAN CELL VOLUME 91.8 fl (80-96); MEAN PLT VOLUME 7.2 fl (7.5-11.1); MONO % 7.3 % (3.8-10.2); NEUT % 74.4 % (42.8-82.8); PLATELET COUNT 208 10^3/uL (134-434); RBC 3.79 M/mm3 (4.00-5.60); WHITE BLOOD COUNT 7.5 K/mm3 (4.0-10.0)
[2023-07-05 09:31] LABS: POTASSIUM 4.2 mmol/L (3.5-5.1)
[2023-07-05 09:33] LABS: BLOOD UREA NITROGEN 24.7 mg/dL (7-18); CALCIUM 8.5 mg/dL (8.5-10.1)
[2023-07-05 09:37] LABS: CREATININE 1.1 mg/dL (0.55-1.3)
[2023-07-05 09:38] LABS: BILIRUBIN,TOTAL 0.4 mg/dL (0.2-1); TOT PROT 6.2 g/dl (6.4-8.2)
[2023-07-07 14:25] VITALS: BP 142/80; PULSE 85; TEMP 99.1
== END 2023-07-07 14:57 | disposition home or self-care (01) | DRG 988 ==
LOC: FER 10:54 → FM/S 15:20 → J6S 06-26 19:25
PROVIDERS: ADMIT Internal Medicine; ATTEND Internal Medicine
PROC: 0QBR3ZX Excision of Left Toe Phalanx, Percutaneous Approach, Diagnostic (ICD-10-PCS; principal; 2023-07-01 07:30)
PROC: 05HY33Z Insertion of Infusion Device into Upper Vein, Percutaneous Approach (ICD-10-PCS; 2023-07-06)
DX: E11.69 Type 2 diabetes mellitus with other specified complication (principal); J45.901 Unspecified asthma with (acute) exacerbation; M86.9 Osteomyelitis, unspecified; I10 Essential (primary) hypertension; E78.5 Hyperlipidemia, unspecified; I25.10 Atherosclerotic heart disease of native coronary artery without angina pectoris; I48.91 Unspecified atrial fibrillation; J44.9 Chronic obstructive pulmonary disease, unspecified; D64.9 Anemia, unspecified; G20.A2 Parkinson's disease without dyskinesia, with fluctuations; L03.032 Cellulitis of left toe; E11.40 Type 2 diabetes mellitus with diabetic neuropathy, unspecified; I87.2 Venous insufficiency (chronic) (peripheral); A49.02 Methicillin resistant Staphylococcus aureus infection, unspecified site; Z95.5 Presence of coronary angioplasty implant and graft
CPT/HCPCS: 36415; 36569; 73630-TC-LT; 73718-TC-LT; 80048; 80053; 82550; 82962; 83036; 83605; 83735; 84100; 85025; 85027; 85651; 86140; 87040; 87070; 87075; 87186; 87205; 93926-TC; 94010; 94760; 99285-25; G0480; J0878; J1100

== ENCOUNTER 2023-07-10 14:13 | Emergency (ER) | payer OTHER ==
[2023-07-10 14:42] VITALS: BMI 28.7
[2023-07-10 17:55] VITALS: BP 129/55; PULSE 89; RESP 19; TEMP 98.2
== END 2023-07-10 19:13 | disposition home or self-care (01) ==
LOC: JER 14:13
DX: T82.898A Other specified complication of vascular prosthetic devices, implants and grafts, initial encounter (principal)
CPT/HCPCS: 99283-25

== ENCOUNTER → 2023-09-02 | Day surgery (SDC) | payer OTHER | END | disposition home or self-care (01) | LOC: JRADUS-SUR 09:05 | PROVIDERS: ATTEND Surgery | PROC: 07D53ZX Extraction of Right Axillary Lymphatic, Percutaneous Approach, Diagnostic (ICD-10-PCS; principal; 2023-09-02) | DX: C82.14 Follicular lymphoma grade II, lymph nodes of axilla and upper limb (principal) | CPT/HCPCS: 19083; 87899; 88307-TC; 88342-TC ==

== ENCOUNTER 2024-07-08 10:01 | Emergency (ER) | payer OTHER ==
[2024-07-08 11:10] VITALS: BP 194/88; PULSE 59; RESP 23; TEMP 97.5; BMI 27.1
[2024-07-08] MEDS ORDERED: MAG HYDROX/AL HYDROX/SIMETH 30 ML UNIT-DOSE CUP ONE (11:17)
[2024-07-08] MEDS ORDERED: ACETAMINOPHEN INJECTION 100 ML ONE (11:17)
[2024-07-08] MEDS ORDERED: FAMOTIDINE 20 MG/50 ML IVPB 20 MG/50 ML MG IVPB ONE (11:18)
[2024-07-08] MEDS ORDERED: ONDANSETRON 4 MG/2 ML VIAL ONE (11:18)
[2024-07-08 11:48] LABS: BASO % 0.3 % (0-2.0); EOS % 0.6 % (0-4.5); HEMATOCRIT 34.1 % (35.4-49); HEMOGLOBIN 11.8 GM/dL (11.7-16.9); LYMPH % 10.7 % (8-40); MCH 31.2 pg (25.7-33.7); MCHC 34.5 g/dl (32.0-35.9); MEAN CELL VOLUME 90.4 fl (80-96); MEAN PLT VOLUME 7.3 fl (7.5-11.1); MONO % 4.7 % (3.8-10.2); NEUT % 83.7 % (42.8-82.8); PLATELET COUNT 154 10^3/uL (134-434); RBC 3.78 M/mm3 (4.00-5.60); RDW 13.9 % (11.9-15.9)
[2024-07-08] MEDS: ACETAMINOPHEN 1000 MG/100 ML BAG IVPB ONE (11:53)
[2024-07-08] MEDS: MAG HYDROX/AL HYDROX/SIMETH 30 ML UNIT-DOSE CUP PO ONE (11:54)
[2024-07-08] MEDS: FAMOTIDINE 20 MG/50 ML IVPB 20 MG/50 ML MG IVPB ONE (11:54)
[2024-07-08] MEDS: ONDANSETRON 4 MG/2 ML VIAL IVPUSH ONE (11:54)
[2024-07-08 12:14] LABS: POTASSIUM 4.3 mmol/L (3.5-5.1)
[2024-07-08 12:16] LABS: CALCIUM 9.1 mg/dL (8.5-10.1)
[2024-07-08 12:17] LABS: ALBUMIN 3.6 g/dl (3.4-5.0); BLOOD UREA NITROGEN 27.4 mg/dL (7-18)
[2024-07-08 12:19] LABS: CREATININE 0.9 mg/dL (0.55-1.3)
[2024-07-08 12:21] LABS: BILIRUBIN,TOTAL 0.5 mg/dL (0.2-1); TOT PROT 6.5 g/dl (6.4-8.2)
[2024-07-08 16:29] LABS: EPI CELLS 1 /uL (0-25.1); HYALINE CASTS 2 /uL (0-3.1); URINE APPEARANCE CLEAR; URINE BACTERIA 3165 /uL (0-1359); URINE BILIRUBIN NEGATIVE (NEGATIVE); URINE COLOR YELLOW; URINE GLUCOSE (UA) 3+ (NEGATIVE); URINE KETONE TRACE (NEGATIVE); URINE LEUK ESTERASE 1+ (NEGATIVE); URINE NITRITE NEGATIVE (NEGATIVE); URINE PROTEIN 2+ (NEGATIVE); URINE RBC 48 /uL (0-23.9); URINE UROBILINOGEN 0.2 mg/dL (0.2-1.0); URINE WBC 745 /uL (0-25.8)
== END 2024-07-08 18:13 | disposition home or self-care (01) ==
LOC: JER 10:01
PROC: 3E033GC Introduction of Other Therapeutic Substance into Peripheral Vein, Percutaneous Approach (ICD-10-PCS; principal; 2024-07-08)
PROC: 3E033NZ Introduction of Analgesics, Hypnotics, Sedatives into Peripheral Vein, Percutaneous Approach (ICD-10-PCS; 2024-07-08)
PROC: 3E033GC Introduction of Other Therapeutic Substance into Peripheral Vein, Percutaneous Approach (ICD-10-PCS; 2024-07-08)
DX: N39.0 Urinary tract infection, site not specified (principal); R11.0 Nausea; R10.30 Lower abdominal pain, unspecified; I10 Essential (primary) hypertension
CPT/HCPCS: 36415; 71045-TC-FY; 80053; 81003; 83690; 84484; 85025; 87086; 87186; 93005; 93010; 96365; 96375; 99285-25; J0131

== ENCOUNTER 2024-09-12 10:15 | Inpatient (IN) | payer OTHER ==
[2024-09-12 10:50] VITALS: BMI 26.6
[2024-09-12 12:04] LABS: EPI CELLS 0 /uL (0-25.1); HYALINE CASTS 2 /uL (0-3.1); PH,URINE 6.5 (5.0-8.0); URINE APPEARANCE CLOUDY; URINE BACTERIA >9,000 /uL (0-1359); URINE BILIRUBIN NEGATIVE (NEGATIVE); URINE COLOR YELLOW; URINE GLUCOSE (UA) NEGATIVE (NEGATIVE); URINE KETONE NEGATIVE (NEGATIVE); URINE LEUK ESTERASE 2+ (NEGATIVE); URINE NITRITE NEGATIVE (NEGATIVE); URINE PROTEIN 2+ (NEGATIVE); URINE RBC 24 /uL (0-23.9); URINE UROBILINOGEN 0.2 mg/dL (0.2-1.0); URINE WBC 540 /uL (0-25.8)
[2024-09-12 12:15] LABS: ABSOLUTE IMMATURE GRANULOCYTES 0.03 x10^3/uL (0.0-0.031); BASOPHILS # 0.01 x10^3/uL (0.01-0.08); EOSINOPHILS # 0.16 x10^3/uL (0.04-0.54); HEMATOCRIT 30.6 % (40.1-51.0); HEMOGLOBIN 9.9 g/dL (13.7-17.5); MCHC 32.4 g/dl (32.3-36.5); MONOCYTE # 0.72 x10^3/uL (0.30-0.82); PLATELET COUNT 215 x10^3/uL (163-337); RDW 11.9 % (12.2-16.4)
[2024-09-12 12:21] LABS: INR 1.17 (0.83-1.09); PROTHROMBIN TIME (PATIENT) 12.8 SEC (9.7-13.0)
[2024-09-12 12:24] LABS: ACTIVATED PTT 35.4 SECONDS (25.2-36.5)
[2024-09-12 12:35] LABS: YEAST NONE SEEN (NEGATIVE)
[2024-09-12 12:44] LABS: POTASSIUM 5.1 mmol/L (3.5-5.1)
[2024-09-12 12:46] LABS: ALBUMIN 2.9 g/dl (3.4-5.0); BLOOD UREA NITROGEN 43.1 mg/dL (7-18)
[2024-09-12 12:51] LABS: BILIRUBIN,TOTAL 0.4 mg/dL (0.2-1); TOT PROT 6.5 g/dl (6.4-8.2)
[2024-09-12 12:52] LABS: CREATININE 0.9 mg/dL (0.55-1.3)
[2024-09-12] MEDS ORDERED: PIPERACILLIN/TAZOB 3.375 GM 3.375 GM/50 ML BAG IVPB ONE ×2 (13:15→19:34)
[2024-09-12] MEDS: PIPERACILLIN/TAZOB 3.375 GM 3.375 GM in DEXTROSE 5%-WATER - 50 ML IVPB ONE (13:23)
[2024-09-12 13:41] LABS: HIV INTERPRETATION NEGATIVE (NEGATIVE)
[2024-09-12 13:42] LABS: HCV DIAGNOSTIC IN-HOUSE W/RFLX NON-REACTIVE (NONREACTIVE)
[2024-09-12] MEDS: VANCOMYCIN HCL IN 5 % DEXTROSE 1,500 MG/300 ML BAG IVPB ONE (13:54)
[2024-09-12] MEDS: VANCOMYCIN HCL 1,500 MG in DEXTROSE 5%-WATER - 500 ML IVPB ONE (14:13)
[2024-09-12] MEDS: SODIUM CHLORIDE 0.9% 500 ML INFUS.BAG IV ONE (14:32)
[2024-09-12] MEDS ORDERED: LOSARTAN POTASSIUM 50 MG TABLET ONE (19:21)
[2024-09-12] MEDS: LOSARTAN POTASSIUM 50 MG TABLET PO SCH (19:29)
[2024-09-12] MEDS: PIPERACILLIN/TAZOB 3.375 GM 50 ML IVPB SCH (19:50)
[2024-09-12] MEDS: APIXABAN 5 MG TABLET PO SCH (21:49)
[2024-09-12] MEDS: INSULIN ASPART SLIDING SCALE (NOVOLOG) 1 VIAL SQ SCH (21:49)
[2024-09-12] MEDS: BUDESONIDE/FORMETEROL FUMARATE 160/4.5 mcg INHALER IH SCH (21:49)
[2024-09-12] MEDS: TAMSULOSIN HCL 0.4 MG CAP PO SCH (21:49)
[2024-09-13] MEDS: PIPERACILLIN/TAZOB 3.375 GM 3.375 GM in DEXTROSE 5%-WATER - 50 ML IVPB SCH (01:49)
[2024-09-13 07:58] LABS: ABSOLUTE IMMATURE GRANULOCYTES 0.01 x10^3/uL (0.0-0.031); BASOPHILS # 0.02 x10^3/uL (0.01-0.08); EOSINOPHILS # 0.24 x10^3/uL (0.04-0.54); HEMATOCRIT 31.9 % (40.1-51.0); HEMOGLOBIN 10.1 g/dL (13.7-17.5); MCHC 31.7 g/dl (32.3-36.5); MEAN CELL VOLUME 90.1 fl (79.0-92.2); MONOCYTE # 0.61 x10^3/uL (0.30-0.82); MONOCYTE % 10.1 % (5.3-12.2); PLATELET COUNT 208 x10^3/uL (163-337); RDW 11.7 % (12.2-16.4)
[2024-09-13] MEDS: PIPERACILLIN/TAZOB 3.375 GM 50 ML IVPB SCH ×2 (07:58→10:12)
[2024-09-13 08:21] LABS: POTASSIUM 4.2 mmol/L (3.5-5.1)
[2024-09-13 08:32] LABS: ALBUMIN 2.5 g/dl (3.4-5.0)
[2024-09-13 08:33] LABS: BLOOD UREA NITROGEN 30.5 mg/dL (7-18); CALCIUM 9.1 mg/dL (8.5-10.1)
[2024-09-13 08:34] LABS: BILIRUBIN,TOTAL 0.6 mg/dL (0.2-1); TOT PROT 5.7 g/dl (6.4-8.2)
[2024-09-13 08:36] LABS: CREATININE 0.9 mg/dL (0.55-1.3)
[2024-09-13 08:42] LABS: N-TERMINAL BNP 2398.8 pg/ml (5-125)
[2024-09-13] MEDS ORDERED: LOSARTAN POTASSIUM 25 MG TABLET PO SCH (10:00)
[2024-09-13] MEDS: ASPIRIN 81 MG CHEWABLE TABLETS PO SCH (10:40)
[2024-09-13] MEDS: CEFTRIAXONE 1 G/50 ML PREMIX 50 ML IVPB SCH (10:40)
[2024-09-13] MEDS: ALLOPURINOL 100 MG TABLET (FP) PO SCH (10:40)
[2024-09-13] MEDS: VANCOMYCIN 1 GM PREMIX (F) 1 GM/200 ML BAG IVPB SCH (17:08)
[2024-09-14] MEDS: FUROSEMIDE 20 MG TABLET (FP) PO SCH (09:11)
[2024-09-14] MEDS: LISINOPRIL 5 MG TABLET PO SCH (10:34)
[2024-09-14] MEDS: CEFAZOLIN 1 GM/D5W 1 GM/50 ML BAG IVPB SCH (17:23)
[2024-09-14] MEDS: CARBIDOPA/LEVODOPA 25/100 TABLET (FP) PO SCH (21:23)
[2024-09-15 08:01] LABS: HEMOGLOBIN 10.5 g/dL (13.7-17.5); MEAN PLT VOLUME 9.9 fl (9.4-12.4); RDW 11.6 % (12.2-16.4)
[2024-09-15 08:03] LABS: ABSOLUTE IMMATURE GRANULOCYTES 0.02 x10^3/uL (0.0-0.031); BASOPHILS # 0.02 x10^3/uL (0.01-0.08); EOSINOPHIL % 4.7 % (0.8-7.0); EOSINOPHILS # 0.26 x10^3/uL (0.04-0.54); HEMATOCRIT 33.4 % (40.1-51.0); MCHC 31.4 g/dl (32.3-36.5); MONOCYTE # 0.49 x10^3/uL (0.30-0.82); MONOCYTE % 8.8 % (5.3-12.2); PLATELET COUNT 213 x10^3/uL (163-337)
[2024-09-15 08:19] LABS: POTASSIUM 4.3 mmol/L (3.5-5.1)
[2024-09-15 08:34] LABS: ALBUMIN 2.6 g/dl (3.4-5.0); CALCIUM 9.3 mg/dL (8.5-10.1)
[2024-09-15 08:37] LABS: CREATININE 1.1 mg/dL (0.55-1.3)
[2024-09-15 08:39] LABS: BILIRUBIN,TOTAL 0.4 mg/dL (0.2-1); TOT PROT 5.9 g/dl (6.4-8.2)
[2024-09-15] MEDS: LISINOPRIL 5 MG TABLET PO SCH (09:15)
[2024-09-15] MEDS: FLUoxetine HCL 20 MG CAPSULE PO SCH (09:15)
[2024-09-15] MEDS ORDERED: ALLOPURINOL 100 MG TABLET (FP) PO SCH (10:00)
[2024-09-16 08:34] LABS: CHOLESTEROL 192 mg/dL (50-200)
[2024-09-16 08:35] LABS: LDL CHOLESTEROL (ONLY SJRH) 130 mg/dL (5-100)
[2024-09-16 08:37] LABS: HDL CHOLESTEROL 40 mg/dL (40-60)
[2024-09-17 08:18] LABS: ABSOLUTE IMMATURE GRANULOCYTES 0.01 x10^3/uL (0.0-0.031); BASOPHILS # 0.02 x10^3/uL (0.01-0.08); EOSINOPHIL % 4.7 % (0.8-7.0); EOSINOPHILS # 0.26 x10^3/uL (0.04-0.54); HEMATOCRIT 33.8 % (40.1-51.0); HEMOGLOBIN 10.8 g/dL (13.7-17.5); MEAN CELL VOLUME 89.9 fl (79.0-92.2); MEAN PLT VOLUME 9.8 fl (9.4-12.4); MONOCYTE # 0.45 x10^3/uL (0.30-0.82); MONOCYTE % 8.2 % (5.3-12.2); PLATELET COUNT 210 x10^3/uL (163-337); RDW 11.7 % (12.2-16.4)
[2024-09-17 08:41] LABS: CHLORIDE 104 mmol/L (98-107); POTASSIUM 4.5 mmol/L (3.5-5.1); SODIUM 138 mmol/L (136-145)
[2024-09-17 08:44] LABS: CALCIUM 9.3 mg/dL (8.5-10.1)
[2024-09-17 08:45] LABS: ALBUMIN 2.7 g/dl (3.4-5.0); ANION GAP 5 mmol/L (4-13); BLOOD UREA NITROGEN 44.9 mg/dL (7-18); CO2 29 mmol/L (21-32); GLUCOSE,RANDOM 172 mg/dL (74-106)
[2024-09-17 08:48] LABS: CREATININE 1.3 mg/dL (0.55-1.3); SGOT/AST 26 U/L (15-37); SGPT/ALT < 6 U/L (13-61)
[2024-09-17 08:49] LABS: BILIRUBIN,TOTAL 0.3 mg/dL (0.2-1)
[2024-09-17 08:51] LABS: ALK PHOS 87 U/L (45-117)
[2024-09-18] MEDS ORDERED: INSULIN (NOVOLOG) ASPART 100 UNITS/ML 10ML VIAL ONE (21:38)
[2024-09-19] MEDS ORDERED: INSULIN (NOVOLOG) ASPART 100 UNITS/ML 10ML VIAL ONE ×3 (11:54→21:41)
[2024-09-19] MEDS: AMOX TR/POT CLAV 500MG/125MG TABLETS (FP) PO SCH (18:59)
[2024-09-20 07:05] VITALS: RESP 18
[2024-09-20 10:38] VITALS: BP 123/62; PULSE 69; TEMP 97.9
== END 2024-09-20 11:40 | disposition home health service (06) | DRG 603 ==
LOC: JER 10:15 → JERBED 12:44 → J6S 20:14
PROVIDERS: ADMIT Internal Medicine; ATTEND Internal Medicine
DX: L03.115 Cellulitis of right lower limb (principal); I11.0 Hypertensive heart disease with heart failure; E11.9 Type 2 diabetes mellitus without complications; J44.9 Chronic obstructive pulmonary disease, unspecified; I48.91 Unspecified atrial fibrillation; I50.9 Heart failure, unspecified; I87.2 Venous insufficiency (chronic) (peripheral); F32.A Depression, unspecified; E78.5 Hyperlipidemia, unspecified; N40.0 Benign prostatic hyperplasia without lower urinary tract symptoms; M10.9 Gout, unspecified; G20.A1 Parkinson's disease without dyskinesia, without mention of fluctuations; I25.10 Atherosclerotic heart disease of native coronary artery without angina pectoris
CPT/HCPCS: 36415; 71045-TC-FY; 73590-TC-LT-FY; 73590-TC-RT-FY; 80053; 80061; 81003; 82962; 83036; 83735; 83880; 84439; 84443; 85025; 85610; 85651; 85730; 86140; 86803; 87040; 87070; 87086; 87186; 87205; 87389; 93005; 93010; 93306-TC; 97116-GP; 99285-25